=== PATIENT | female | born 1955 | race Caucasian/White ===

== ENCOUNTER 2020-07-16 16:18 | Outpatient (CLI) | payer BC, SELFPAY ==
--- NOTE | ~2020-07-16 | MM_ITS ---
EXAMINATION: MM screening [facility] BI w elly HISTORY: Screening TECHNIQUE: Craniocaudal and mediolateral oblique 3-D tomosynthesis images were obtained and synthetic 2-D images were generated. CAD analysis was submitted and interpreted. COMPARISON: No prior mammogram is available for comparison at this institution. BREAST PARENCHYMAL COMPOSITION: The breasts are heterogeneously dense, which may obscure small masses . FINDINGS: Focal asymmetry medially in the right breast is unchanged on CC view. There is no evidence of suspicious mass, calcification, or architectural distortion to suggest malignancy in either breast . There has been no suspicious interval change. IMPRESSION: 1. No mammographic evidence of malignancy. 2. Recommend routine screening mammography in one year. BI-RADS Category 2: Benign finding(s). Reviewed, dictated and finalized at location A. TIC SUPERVISOR
== END 2020-07-16 16:19 | disposition home or self-care (01) ==
LOC: ANHIMG 16:21
PROVIDERS: PCP Student in an Organized Health Care Education/Training Program; Visit Provider Student in an Organized Health Care Education/Training Program
DX: Z12.31 Encounter for screening mammogram for malignant neoplasm of breast (principal)
CPT/HCPCS: 77063; 77067

== ENCOUNTER 2021-10-29 08:40 | Outpatient (CLI) | payer BC, SELFPAY ==
--- NOTE | ~2021-10-29 | MM_ITS ---
EXAMINATION: MM screening [facility] BI w elly HISTORY: Screening TECHNIQUE: Craniocaudal and mediolateral oblique 3-D tomosynthesis images were obtained and synthetic 2-D images were generated. CAD analysis was submitted and interpreted. COMPARISON: Comparison to multiple prior studies sequentially, with oldest reviewed study dated 10/07. BREAST PARENCHYMAL COMPOSITION: The breasts are heterogenously dense, which may obscure small masses FINDINGS: There is no evidence of suspicious mass, calcification, or architectural distortion to sugg est malignancy in either breast. There has been no suspicious interval change. IMPRESSION: 1. No mammographic evidence of malignancy. 2. Recommend routine screening mammography in one year. BI-RADS Category 1: Negative Reviewed, dictated and finalized at location A. GY CONSERVATION TECHNICIAN
== END 2021-10-29 08:41 | disposition home or self-care (01) ==
LOC: ANHIMG 08:42
PROVIDERS: PCP Student in an Organized Health Care Education/Training Program; Visit Provider Student in an Organized Health Care Education/Training Program
DX: Z12.31 Encounter for screening mammogram for malignant neoplasm of breast (principal)
CPT/HCPCS: 77063; 77067

== ENCOUNTER 2022-12-29 12:24 | Outpatient (CLI) | payer MEDICARE, SELFPAY ==
--- NOTE | ~2022-12-29 | MM_ITS ---
EXAMINATION: MM screening [facility] BI w elly HISTORY: Screening mammogram TECHNIQUE: Craniocaudal and mediolateral oblique 3-D tomosynthesis images were obtained and synthetic 2-D images were generated. CAD analysis was submitted and interpreted. COMPARISON: 10/29/2021, 07/16/2020, 05/02/2018 BREAST PARENCHYMAL COMPOSITION: There are scattered areas of fibroglandular density. FINDINGS: No suspicious mass, calcification, or architectural distortion are identified in either ino ast to suggest malignancy. There has been no suspicious interval change. IMPRESSION: 1. No mammographic evidence of malignancy. 2. Recommend routine screening mammography in one year. BI-RADS Category 1: Negative Reviewed, dictated and finalized at location A.
== END 2022-12-29 12:25 | disposition home or self-care (01) ==
DX: Z12.31 Encounter for screening mammogram for malignant neoplasm of breast (principal)
CPT/HCPCS: 77063; 77067

== ENCOUNTER 2024-02-03 09:47 | Outpatient (CLI) | payer MEDICARE, SELFPAY ==
--- NOTE | ~2024-02-03 | MM_ITS ---
EXAMINATION: MM screening [facility] BI w elly HISTORY: Screening mammogram TECHNIQUE: Craniocaudal and mediolateral oblique 3-D tomosynthesis images were obtained and synthetic 2-D images were generated. CAD analysis was submitted and interpreted. COMPARISON: December 29, 2022, October 29, 2021 bilateral screening mammogram examinations BREAST PARENCHYMAL COMPOSITION: There are scattered areas of fibroglandular density. FINDINGS: There is no evidence of suspicious mass, calcification, or architectural distortion to sugg est malignancy in either breast. There has been no suspicious interval change. IMPRESSION: 1. No mammographic evidence of malignancy. 2. Recommend routine screening mammography in one year. BI-RADS Category 1: Negative Reviewed, dictated and finalized at location B.
== END 2024-02-03 09:48 | disposition home or self-care (01) ==
LOC: ANHIMG 09:50
DX: Z12.31 Encounter for screening mammogram for malignant neoplasm of breast (principal)
CPT/HCPCS: 77063; 77067

== ENCOUNTER 2025-02-22 09:36 | Outpatient (CLI) | payer MEDICARE, SELFPAY ==
--- NOTE | ~2025-02-22 | MM_ITS ---
EXAMINATION: MM screening [facility] BI w elly HISTORY: Screening TECHNIQUE: Craniocaudal and mediolateral oblique 3-D tomosynthesis images were obtained and synthetic 2-D images were generated. CAD analysis was submitted and interpreted. COMPARISON: Comparison to multiple prior studies sequentially, with oldest reviewed study dated 11/22. BREAST PARENCHYMAL COMPOSITION: Not dense: There are scattered areas of fibroglandular density. FINDINGS: There is no evidence of suspicious mass, calcification, or architectural distortion to sugg est malignancy in either breast. There has been no suspicious interval change. IMPRESSION: 1. No mammographic evidence of malignancy. 2. Recommend routine screening mammography in one year. BI-RADS Category 1: Negative Reviewed, dictated and finalized at location B.
--- OUTSIDE RECORDS SUMMARY | 2025-02-22 09:43 | XMS_ITS | Continuity of Care Document ---
Author Organization [facility] Address [address] [place] [address] Phone Care Team Providers Care Manifest Clerk Name Role Phone Rober Bonds MD Unavailable Unavailable Allergies, Adverse Reactions, Alerts Substance Reaction Status Criticality No Known Allergies Active No Inform ation Medications Medication Instructions Dosage Effective Dates (start - stop) Status Comments Protonix 40 mg tablet,delayed release take 1 tablet by oral route every day 40 MG - Active fluoxetine 10 mg tablet TAKE 1 TABLET DAILY - Active famotidine 20 mg tablet take 1 tablet by oral route every day 20 MG - Active simvastatin 20 mg tablet TAKE 1 TABLET EVERY EVENING - Active triamcinolone acetonide 0.5 % topical cream apply by topical route 2 times every day a thin layer to the affected area(s) 0.00 - Active Estrace 1 mg tablet take 1 tablet by oral route every day 1 MG - Active multivitamin tablet take 1 tablet by oral route every day 1 tablet - Active famotidine 20 mg tablet take 1 tablet by oral route every day 20 MG - No Longer Active Protonix 40 mg tablet,delayed release take 1 tablet by oral route every day 40 MG - No Longer Active fluoxetine 10 mg tablet TAKE 1 TABLET DAILY - No Longer Active simvastatin 20 mg tablet TAKE 1 TABLET EVERY EVENING - No Longer Active Procedures Procedure Date OFFICE [id number] Visit Complexity Inherent To E/M 2024 SYST BP LT 130 MM HG DIAST BP < 80 MM HG OFFICE [id number] SYST BP LT 130 MM HG DIAST BP < 80 MM HG GENERAL HEALTH PANEL HEMOGLOBIN A1C HGA1C, GLYCO LIPID PANEL ROUTINE VENIPUNCTURE PPPS, subseq visit OFFICE [id number] SYST BP LT 130 MM HG DIAST BP < 80 MM HG OFFICE [id number] OFFICE [id number] CBC, INC PLATELETS AND DIFFERENTIAL COMPREHEN METABOLIC PANEL CMP 3 HEMOGLOBIN A1C HGA1C, GLYCO LIPID PANEL THYROID STIMULATION HORMONE(TSH) 2022 ROUTINE VENIPUNCTURE PPPS, subseq visit OFFICE [id number] CBC, INC PLATELETS AND DIFFERENTIAL COMPREHEN METABOLIC PANEL [facility] 2 HEMOGLOBIN A1C HGA1C, GLYCO LIPID PANEL THYROID STIMULATION HORMONE(TSH) 2021 ROUTINE VENIPUNCTURE PNEUMOVAX ADM MEDICARE Pneumococcal Conjugate Vaccine (PCV20) J INIT PREVENT PHYS EXAM; LIMITED TO NEW B ENEFICIARY GENERAL HEALTH PANEL HEMOGLOBIN A1C HGA1C, GLYCO LIPID PANEL VITAMIN D, 25-HYDROXY ROUTINE VENIPUNCTURE Pt inelig neg scrn depres PREVENTATIVE-EST: 40-64 BODY MASS INDEX DOCD SYST BP LT 130 MM HG DIAST BP < 80 MM HG Advance Directives Directive Yes / No Effective Date File Name No Information Encounters Encounter Description Practice Location Reason(s) For Visit Diagnoses Date Provider Providers Copied on Encounter [facility], [address], [place], [place], [address] , tel: [phone] [facility] No Information 5 Vamshi Richter. [address], [place], [place], [address], [place]. tel:[phone] [facility], [address], [place], [place], [address] , [place] tel: [phone] [facility] Vitamin D deficiency, unspecified 5 Vamshi Richter. [address], [place], [place], [address], [place]. tel:[phone] OFFICE [id number]-QFH-JD MP-MED [facility], [address], [place], [place], [address] , [place] tel: [phone] [facility] Physical (chief complaint)C hronic Conditions (chief complaint)c hronic conditions (chief complaint) Major depressive disorder, recurrent, moderateGastro-es ophageal reflux disease without esophagitisPure hypercholesterole michela, unspecifiedImpair ed fasting glucoseChronic coughScreening for cardiovascular conditionVitamin D deficiency, unspecified 5 Vamshi Richter. [address], [place], [place], [address], [place]. tel:[phone] Referring Provider: Rober Bonds, [address], [place], [address] . tel:[phone] OFFICE FUCJG-AYC-LE PANDED [facility], [address], [place], [place], [address] , [place] tel: [phone] [facility] Medicine Cough (chief complaint) Body mass index [BMI] 33.0-33.9, adultAcute URI 4 Rigoberto Johnson. [address] , [address], [place], [address], [place]. tel:[phone] Referring Provider: Elizabeth Tinoco, [address], [place], [address]. tel:[phone] [facility], [address], [place], [place], [address] , [place] tel:[phone] [facility] Outpatient Services Mixed hyperlipidemiaPre diabetes 4 Hand Lenny. [address], [address], [place], [place], [address], [place]. tel:[phone] Referring Provider: [address], [place], [address] . tel:[phone] OFFICE EKSRT-KFN-MG TAILED [facility], [address], [place], [place], [address] , tel: [phone] [facility] Medicare preventive (chief complaint)C hronic Conditions (chief complaint) Encntr for general adult medical exam w/o abnormal findingsGastro-es ophageal reflux disease without esophagitisMixed hyperlipidemiaMaj or depressive disorder, recurrent, moderatePrediabet es 4 Hand Lenny. [address], [address], [place], [place], [address], [place]. tel:[phone] Referring Provider: [address], [place], [address] . tel:[phone] OFFICE VVPVZ-BLY-IT [facility], [address], [place], [place], [address] , [place] tel:[phone] [facility] Sinus (chief complaint) Body mass index [BMI] 33.0-33.9, adultAcute non-recurrent maxillary sinusitis 3 Hand Lenny. [address], [address], [place], [place], [address], [place]. tel:[phone] Referring Provider: [address], [place], [address] . tel:[phone] OFFICE FCBTA-UJG-UN PANDED [facility], [address], [place], [place], [address] , [place] tel: [phone] [facility] Medicine Rash (chief complaint) Dermatitis 3 Roberto Bowens. [address], [address], [place], [place], [address], [place]. tel:[phone] Referring Provider: Kwan Mejia, [address], [place], [address] . tel:[phone] [facility], [address], [place], [place], [address] , [place] tel: [phone] [facility] [employer] [facility] Outpatient Services Mixed hyperlipidemiaPre diabetesAllergic rhinitis, unspecified 3 Hand Lenny. [address], [address], [place], [place], [address], [place]. tel:[phone] Referring Provider: Lenny Mathis, [address], [place], [address] . tel:[phone] OFFICE UMQFI-EPN-VP TAILED [facility], [address], [place], [place], [address] , [place] tel: [phone] [facility] Medicare preventive (chief complaint)C hronic Conditions (chief complaint) Encounter for subsequent annual wellness visit (AWV) in Medicare patientMixed hyperlipidemiaPre diabetesAcute allergic rhinitisMajor depressive disorder, recurrent, in partial remissionGastro-e sophageal reflux disease without esophagitis 3 Hand Lenny. [address], [address], [place], [place], [address], [place]. tel:[phone] Referring Provider: [address], [place], [address] . tel:[phone] [facility], [address], [place], [address] , [place] tel: [phone] [facility] [facility] Outpatient Services Mixed hyperlipidemiaOth er abnormal glucoseVitamin D deficiency, unspecified 2 Hand Lenny. [address], [address], [place], [place], [address], . tel:[phone] Referring Provider: [address], [place], [address] . tel:[phone] [facility], [address], [place], [place], [address] , tel: [phone] [facility] Medicare preventive (chief complaint) Body mass index [BMI] 33.0-33.9, adultWelcome to Medicare preventive visitMixed hyperlipidemiaAbn ormal glucoseVitamin D deficiency, unspecified 2 Hand Lenny. [address], [address], [place], [place], [address], . tel:[phone] Referring Provider: [address], [place], [address] . tel:[phone] [facility], [address], [place], [place], [address] , tel: [phone] [facility] Normal routine physical examination 1 Hand Lenny. [address], [address], [place], [place], [address], . tel:[phone] [facility], [address], [place], [place], [address] , tel: [phone] [facility] Outpatient Services Encntr for general adult medical exam w/o abnormal findingsMixed hyperlipidemiaOth er abnormal glucoseVitamin D deficiency, unspecified 1 Hand Lenny. [address], [address], [place], [place], [address], . tel:[phone] Referring Provider: [address], [place], [address] . tel:[phone] PREVENTATIVE -EST: 40-64 [facility], [address], [place], [place], [address] , tel: [phone] [facility] Routine General PE (chief complaint) Body mass index (BMI) 33.0-33.9, adultMajor depressive disorder, recurrent, in partial remissionMixed hyperlipidemiaGas tro-esophageal reflux disease without esophagitisRoutin e general medical examination at a health care facilityAbnormal glucoseVitamin D deficiency 1 Delfina Galvez. [address], [address], [place], [place], [address], [place]. tel:[phone] Referring Provider: Lenny Mathis, [address], [place], [address] . tel:[phone] [facility], [address], [place], [place], [address] , [place] tel: [phone] [facility] No Information 1 Delfina Galvez. [address], [address], [place], [place], [address], [place]. tel:[phone] Family History Family Member Type Diagnosis Age At Onset Brother Problem Alive and well Problem Family history of pulmonary emphysema Problem Family history of tuberculos is Problem Family history of Diabetes m ellitus Father Problem Parkinson's disease Problem Family history of Mesothelio ma Problem Family history o f malignant neoplasm of lung Brother Problem asthma Maternal grandfather Problem Heart Failure Father Problem malignant neoplasm of skin Mother Problem hypertension Problem Family history o f bronchitis or chronic obstructive airway disease Immunizations Vaccine Date Status Comments Pneumococcal conjugate PCV20 administered Source: New Immunization Record Moderna COVID19 Vaccine, 0.5 mL per dose, 2 doses, administered 28 days apart administered Source: Other Registry Moderna COVID19 Vaccine, 0.5 mL per dose, 2 doses, administered 28 days apart administered Source: Other Registry Fluzone Quad, preservative free, split virus, 0.5mL dosage administered Source: Other Provid er Fluzone Quad, preservative free, split virus, 0.5mL dosage administered Source: Other Provid er Zoster administered Source: Other P rovider Fluzone Quad, preservative free, split virus, 0.5mL dosage administered Source: Other Provid er Fluzone Quad, preservative free, split virus, 0.5mL dosage administered Source: Other Provid er zoster vaccine, live administered Source: Other Provider Fluzone Quad, preservative free, split virus, 0.5mL dosage administered Source: Other Provid er Fluzone Quad, preservative free, split virus, 0.5mL dosage administered Source: Other Provid er Fluzone Quad, preservative free, split virus, 0.5mL dosage administered Source: Other Provid er Fluzone Quad, preservative free, split virus, 0.5mL dosage administered Source: Other Provid er Fluzone Quad, preservative free, split virus, 0.5mL dosage administered Source: Other Provid er Fluzone Quad, preservative free, split virus, 0.5mL dosage administered Source: Other Provid er Fluzone Quad, preservative free, split virus, 0.5mL dosage administered Source: Other Provid er Tdap administered Source: Other P rovider Fluzone Quad, preservative free, split virus, 0.5mL dosage administered Source: Other Provid er Payers Payer name Insurance type Covered libertarian ID Authoriza tion(s) [facility] [place] [place] [id number] Social History Type Description Quantity Date Captured Comments Sex Female Smoking Status No Information Sexual Orientation Straight or heterosexual Gender Identity Female Chief Complaint And Reason For Visit No Information Reason For Referral Reason For Referral No Information Plan Of Treatment Date Type Action Status Goal Dietary manageme nt education, guidance, and counseling completed Goal Dietary manageme nt education, guidance, and counseling completed Goal Dietary manageme nt education, guidance, and counseling completed Goal Dietary manageme nt education, guidance, and counseling completed Appointment Indigo Chavez BOOKED Appointment Indigo Chavez BOOKED History Of Present Illness Encounter Date Complaint History Of Prese nt Illness chronic conditions *See Chronic Conditions HPI Physical Pt here to f/u o n their multiple chronic medical conditions. Chronic conditions reviewed in detail. Chronic conditions updated in HPI where applicable. Chronic Conditions *See Chronic Conditions HPI Cough Onset: 3 days ag o. Pt reports that symptoms started with sore throat, has progressed to productive cough, runny nose, mild ear pressure. Pt denies SOB, wheezing, fever, chills, sinus pain/pressure, headache. Her granddaughters have been sick. Pt is currently taking sudafed and mucinexDM Chronic Conditions *See Chronic Conditions HPI Medicare preventive A Health Ris k Assessment has been performed and reviewed. The patient has not felt depressed and has had interest and pleasure doing things recently. Functional status assessed on 03/03/2023. Cognitive Status: (Cognitive status has not changed) on 03/07/2024. The ''Up and Go'' test took less than 30 seconds andthe patient does not need help with activities of daily living. The patient is not at risk for falls. The patient has not fallen in the last year. The fall(s) did not result in injury. Patient's activity level is moderate. Patient exercises 3-4 times/week. The patient has smoke detectors, carbon monoxide detectors in the home. Dr. Encarnacion (Dermatology), Dr. España Patient reports a 1800 calorie diet. Patient denies recent weight gain. Patient denies recent weight loss. Relevant history is negative for tobacco use, passive vaping exposure, passive smoke exposure and alcohol use. Sinus several days of sinus infection symptoms. called on tuesday and got low dose amoxicillin. not feeling better. the patient is here since symptoms have worsened, now with congestion, cough, wheezing and bronchial. covid negative. Rash The patient pres ents for Rash. This episode has lasted 9 Days. The symptom(s) are described as mild and worse. Affected area(s) include right arm. The patient describes the affected area(s) as itchy and red. The denies aggravating factors such as clothing, dry air, lotions and sun exposure. The symptoms are not relieved by medrol helped but not enough. Associated symptoms include edema, erythema (skin) and pruritus. Pertinent negatives include easy bleeding, fatigue, painful rash and scaling. Chronic Conditions *See Chronic Conditions HPI Medicare preventive A Health Ris k Assessment has been performed and reviewed. The patient has not felt depressed and has had interest and pleasure doing things recently. Functional Status: (Functional status has not changed) on 03/03/2023. Cognitive Status: (Cognitive status has not changed) on 03/03/2023. The ''Up and Go'' test took less than 30 seconds andthe patient does not need help with activities of daily living. The patient is not at risk for falls. The patient has not fallen in the last year. The fall(s) did not result in injury. Patient's activity level is moderate. Patient exercises 3-4 times/week. The patient has smoke detectors, carbon monoxide detectors in the home. Patient reports a 1800 calorie diet. Patient denies recent weight gain. Patient denies recent weight loss. Relevant history is negative for tobacco use, passive vaping exposure, passive smoke exposure and alcohol use. Medicare preventive A Health Ris k Assessment has been performed and reviewed. The patient has not felt depressed and has had interest and pleasure doing things recently. Functional Status: (Functional status has not changed) on 03/02/2022. SLUMS assessment completed, with a total score of 30, Normal. Cognitive Status: (Cognitive status has not changed) on 03/02/2022. The ''Up and Go'' test took less than 30 seconds andthe patient does not need help with activities of daily living. The patient is not at risk for falls. The patient has not fallen in the last year. The fall(s) did not result in injury. Patient's activity level is moderate. Patient exercises 3-4 times/week. The patient has smoke detectors, carbon monoxide detectors in the home. Patient reports a 1800 calorie diet. Patient denies recent weight gain. Patient denies recent weight loss. Relevant history is negative for tobacco use, passive vaping exposure, passive smoke exposure and alcohol use. Routine General PE The patient i s here for a preventative visit. Chronic problems are addressed elsewhere. Immunizations and screening tests are reviewed at this visit.Mammogram and colon are up to date (in [facility])Gets BCC, the patient is seeing Elba Garcia in [place] every 6 months. Functional Status Date Functional Assessmen t No Information Instructions Date Instruction Additional Infor beto f/u 1 year Related to Pure hypercholesterolemia, unspecified Antibiotics are not indicated unless its been 7 days. Continue with OTC medications like Mucinex, DayQuil/NyQuil (Or Coricidin High BP if you have high blood pressure), steamy showers/humidifiers, and plenty of water and rest. Please let us know if you continue to have symptoms Tuesday. Related to Acute URI Dietary management e ducation, guidance, and counseling Related to Body mass index (BMI) 33.0-33.9, adult Dietary management e ducation, guidance, and counseling Related to Body mass index (BMI) 33.0-33.9, adult Prednisone taper for more inflammatory controltopical steroid sent indoxy sent in to avoid secondary infection. Related to Dermatitis Counseled on dietary changes Counseled on weight reduction Counseled on weight reduction Dietary management e ducation, guidance, and counseling Related to Body mass index (BMI) 33.0-33.9, adult Counseled on dietary changes Dietary management e ducation, guidance, and counseling Related to Body mass index (BMI) 33.0-33.9, adult Assessments Type Assessment Date No Information Patient Care Teams Name Effective Dates (start - stop) Status Members No Information
== END 2025-02-22 09:37 | disposition home or self-care (01) ==
LOC: ANHIMG 09:39
DX: Z12.31 Encounter for screening mammogram for malignant neoplasm of breast (principal)
CPT/HCPCS: 77063; 77067